=== PATIENT | female | born 1995 ===

== ENCOUNTER 2017-04-06 18:38 | Observation (INO) | payer BC ==
--- NOTE | 2017-04-06 19:01 | ED PDOC ---
HPI:STROKE - Time Time: 18:59 - Historian Historian: Patient - Chief Complaint Chief Complaint: Weakness, Numbness - Onset Date: 04/06/17 Time: 18:20 Onset: Hours (0.5) - Timing Timing: Improved - Location Location: None Locate right:: Face, Upper extremity - Radiation Radiation: None - Severity of pain Maximum severity:: Mild Pain Scale:: 0 Severity Current: Mild Pain Scale:: 0 - TPA Positive for Contraindication: Yes Reason tPA is not being Administered: sxs improving NIHSS Stroke Scale - How Severe is the Stroke Level of Consciousness: 0=Alert LOC to Questions: 0=Both comments correct LOC to commands: 0=Obeys both correctly Best Gaze: 0=Normal Visual: 0=No visual loss Facial: 0=Normal Motor Arm - Left: 0=No drift Motor Arm - Right: 0=No drift Motor Leg - Left: 0=No drift Motor Leg - Right: 0=No drift Limb Ataxia: 0=Absent Sensory: 1=Mild to moderate loss Best Language: 0=No aphasia Dysarthia: 0=Normal articulation Extinction & Inattention (Neglect): 0=Normal, no object Score: 1 rTPA Inclusion/Exclusion - Refusal of Treatment Patient Refused Treatment: No - Inclusion Criteria for Altepase Patient is 18 years or Older: Yes The Clinical Diagnosis of Ischemic Stroke That is Causing a Potentially Disabling Neurological Deficit: No Time of Onset is Well Established to be Less Than 270 Minute Before Treatment Would Begin: Yes Risk/Benefit Discussed With Patient/Family Member Present: No Past Medical History Vital Signs: Last Vital Signs Temp 98.6 F 04/06/17 18:45 Pulse 78 04/06/17 18:45 Resp 16 04/06/17 18:45 BP 119/66 04/06/17 18:45 Pulse Ox 99 04/06/17 18:45 - Medical History PMH: No Chronic Diseases - Family History Family History: States: Unknown Family Hx - Allergies Allergies/Adverse Reactions: Allergies Allergy/AdvReac Type Severity Reaction Status Date / Time No Known Allergies Allergy Verified 04/06/17 18:43 Review of Systems ROS Statement: Except As Marked, All Systems Reviewed And Found Negative Eyes: Positive for: Vision Change Neurological: Positive for: Numbness. Negative for: Weakness Physical Exam - Reviewed Nursing Documentation Reviewed: Yes Vital Signs Reviewed: Yes - Physical Exam Appears: Positive for: Non-toxic, No Acute Distress Head Exam: Positive for: ATRAUMATIC, NORMAL INSPECTION, NORMOCEPHALIC Skin: Positive for: Normal Color, Warm, DRY Eye Exam: Positive for: EOMI, Normal appearance, PERRL ENT: Positive for: Normal ENT Inspection Neck: Positive for: Normal, Painless ROM Cardiovascular/Chest: Positive for: Regular Rate, Rhythm Respiratory: Positive for: CNT, Normal Breath Sounds Gastrointestinal/Abdominal: Positive for: Normal Exam, Bowel Sounds, Soft Back: Positive for: Normal Inspection Extremity: Positive for: Normal ROM Neurologic/Psych: Positive for: Alert, Oriented, Motor/Sensory Deficits ( Decrease sensation right arm and right lower ext), Other (No visual field deficits) - ECG O2 Sat by Pulse Oximetry: 99 Disposition - Clinical Impression Clinical Impression: Weakness of one side of body - Patient ED Disposition Is Patient to be Admitted: Transfer of Care - Disposition Disposition: Transfer of Care Disposition Time: 19:08 Condition: FAIR Forms: iwoca (Armenian) Patient Signed Over To: Jacob Fonseca
--- NOTE | 2017-04-06 19:24 | CT ---
EXAM: CT Head Without Intravenous Contrast EXAM DATE/TIME: 04/06/2017 6:58 PM CLINICAL HISTORY: 21 years old, female; Signs and symptoms; Other: Code stroke TECHNIQUE: Axial computed tomography images of the head/brain without intravenous contrast. All CT scans at this facility use one or more dose reduction techniques, viz.: automated exposure control; ma/kV adjustment per patient size (including targeted exams where dose is matched to indication; i.e. head); or iterative reconstruction technique. Coronal and sagittal reformatted images were created and reviewed. COMPARISON: No relevant prior studies available. FINDINGS: LIMITATIONS: Streak/motion artifact, involving the images of the vertex/top of the brain. BRAIN: No significant acute abnormality identified. No acute hemorrhage seen within the brain. No acute extra-axial fluid collections visualized. No evidence of significant mass effect within the brain. No CT findings to suggest an acute, large territorial infarct, however, small or early acute infarcts may not be visible on CT. VENTRICLES: No evidence of significant hydrocephalus. BONES/JOINTS: No acute fractures or other acute bony abnormality noted. SOFT TISSUES: No acute abnormality of the visualized soft tissues is seen. SINUSES: Visualized paranasal sinuses appear clear. MASTOID AIR CELLS: Mastoid air cells appear clear. IMPRESSION: - No acute findings seen within the brain, allowing for motion artifact. - See above for remaining findings.
--- NOTE | 2017-04-06 19:28 | ED PDOC ---
- Laboratory Results Result Diagrams: 04/06/17 19:15 04/06/17 19:35 - ECG O2 Sat by Pulse Oximetry: 99 Medical Decision Making Medical Decision Makin:00 Patient signed over to me by Dr. Smallwood pending CT Scan, labs, and reevaluation. 19:[address] FINDINGS: LIMITATIONS: Streak/motion artifact, involving the images of the vertex/top of the brain. BRAIN: No significant acute abnormality identified. No acute hemorrhage seen within the brain. No acute extra-axial fluid collections visualized. No evidence of significant mass effect within the brain. No CT findings to suggest an acute, large territorial infarct, however, small or early acute infarcts may not be visible on CT. VENTRICLES: No evidence of significant hydrocephalus. BONES/JOINTS: No acute fractures or other acute bony abnormality noted. SOFT TISSUES: No acute abnormality of the visualized soft tissues is seen. SINUSES: Visualized paranasal sinuses appear clear. MASTOID AIR CELLS: Mastoid air cells appear clear. IMPRESSION: - No acute findings seen within the brain, allowing for motion artifact. - See above for remaining findings. 19:[address] Clemens, who reports that he feels that patient may have undiagnosed migraines, or possibly another neurologic issue. He asked that the patient be placed on Obs status for further workup including MRI. Plan explained to patient, who is in agreement. Patient additionally reports that her brother was recently diagnosed with MS, which was communicated to Dr. Clemens. Case referred to Dr. Marceol, Medicine household personal assistant. Scribe Attestation: Documented by Nilsa Linder, acting as a scribe for Jacob Fonseca MD. Provider Scribe Attestation: All medical record entries made by the Scribe were at my direction and personally dictated by me. I have reviewed the chart and agree that the record accurately reflects my personal performance of the history, physical exam, medical decision making, and the department course for this patient. I have also personally directed, reviewed, and agree with the discharge instructions and disposition. Disposition Discussed With Dr.: Jeromy Marcelo (Dr Clemens) Counseled Patient/Family Regarding: Studies Performed, Diagnosis - Clinical Impression Clinical Impression: TIA (transient ischemic attack), Numbness and tingling of right arm and leg - POA Present On Arrival: None - Disposition Disposition: Hospitalized as Observation Patient Disposition Time: 19:34 Condition: FAIR
[2017-04-06 20:01] LABS: BASO % 0.2 % (0.0-2.0); EOS # 0.1 K/uL (0.0-0.7); EOS % 1.9 % (0.0-4.0); HEMATOCRIT 35.9 % (34.0-47.0); LYMPH # 2.5 K/uL (1.0-4.3); LYMPH % 34.8 % (20.0-40.0); MEAN CELL VOLUME 88.4 fl (81.0-99.0); MEAN CORPUSCULAR HEMOGLOBIN 29.6 pg (27.0-31.0); MEAN CORPUSCULAR HGB CONC 33.5 g/dL (33.0-37.0); MEAN PLATELET VOLUME 9.1 fl (7.2-11.7); MONO # 0.5 K/uL (0.0-0.8); MONO % 7.4 % (0.0-10.0); NEUT # 3.9 K/uL (1.8-7.0); NEUT % 55.7 % (50.0-75.0); NRBC % 0.1 % (0.0-0.0); RED CELL DISTRIBUTION WIDTH 13.1 % (11.5-14.5); WHITE BLOOD COUNT 7.1 K/uL (4.8-10.8)
[2017-04-06 20:08] LABS: PARTIAL THROMBOPLASTIN TIME 27.6 Seconds (25.6-37.1)
[2017-04-06 20:14] LABS: ALB/GLOB RATIO 1.4 (1.0-2.1); ALKALINE PHOSPHATASE 83 U/L (38-126); ALT/SGPT 38 U/L (9-52); AST/SGOT 25 U/L (14-36); BILIRUBIN,TOTAL 0.4 mg/dl (0.2-1.3); BLOOD UREA NITROGEN 14 mg/dl (7-17); CARBON DIOXIDE 25 mmol/L (22-30); CHLORIDE 103 mmol/L (98-107); CHOLESTEROL 183 mg/dL (0-199); GFR AFRICAN-AMERICAN > 60; GLUCOSE,RANDOM 102 mg/dL (65-105); POTASSIUM 3.7 MMOL/L (3.6-5.0); SODIUM 139 mmol/l (132-148); TOTAL PROTEIN 7.9 G/DL (6.3-8.2)
[2017-04-07 06:47] LABS: HEMATOCRIT 36.1 % (34.0-47.0); MEAN CELL VOLUME 88.2 fl (81.0-99.0); MEAN CORPUSCULAR HEMOGLOBIN 29.7 pg (27.0-31.0); MEAN CORPUSCULAR HGB CONC 33.6 g/dL (33.0-37.0); RED CELL DISTRIBUTION WIDTH 13.1 % (11.5-14.5); WHITE BLOOD COUNT 5.9 K/uL (4.8-10.8)
--- NOTE | 2017-04-07 07:01 | CP.PCM.HP ---
History of Present Illness - History of Present Illness History of Present Illness: A 21 year old female was admitted on 04/06/17 for right side headache and numbness on right forehead. It started at the same day at 6:20 in the evening when she was at her friend's house. She started having pain at the back of right side head, it radiated down to neck , right arm and right leg. She also had blurry vision and black spots in her eyes. She was feeling nauseous at the same time, but she did not vomit. When the patient came to ER, code stroke was called. Normally she had been healthy and was not taking any regular medicines. There is no family history of stroke, MS, hypertension or diabetes. She does not smoke cigarettes and does not use any illicit drugs. She is during menstruation. Present on Admission - Present on Admission Any Indicators Present on Admission: No History of DVT/PE: No History of Uncontrolled Diabetes: No Urinary Catheter: No Decubitus Ulcer Present: No Review of Systems - EENT Eyes: Blurred Vision Nose/Mouth/Throat: absent: Nasal Congestion - Cardiovascular Cardiovascular: absent: Chest Pain, Dyspnea on Exertion - Respiratory Respiratory: absent: Cough - Gastrointestinal Gastrointestinal: Nausea - Genitourinary Genitourinary: absent: Hematuria Past Patient History - Past Medical History & Family History Past Medical History?: No - Past Social History Smoking Status: Never Smoked - CARDIAC Hx Cardiac Disorders: No - PULMONARY Hx Respiratory Disorders: No - NEUROLOGICAL Hx Neurological Disorder: No - HEENT Hx HEENT Problems: No - RENAL Hx Chronic Kidney Disease: No - ENDOCRINE/METABOLIC Hx Endocrine Disorders: No - HEMATOLOGICAL/ONCOLOGICAL Hx Blood Disorders: No - INTEGUMENTARY Hx Dermatological Problems: No - MUSCULOSKELETAL/RHEUMATOLOGICAL Hx Musculoskeletal Disorders: No Hx Falls: No - GASTROINTESTINAL Hx Gastrointestinal Disorders: No - GENITOURINARY/GYNECOLOGICAL Hx Genitourinary Disorders: No - PSYCHIATRIC Hx Psychophysiologic Disorder: No Hx Substance Use: No - SURGICAL HISTORY Hx Surgeries: No - ANESTHESIA Hx Anesthesia: No Meds Allergies/Adverse Reactions: Allergies Allergy/AdvReac Type Severity Reaction Status Date / Time No Known Allergies Allergy Verified 04/06/17 18:43 Physical Exam - Constitutional Appears: No Acute Distress - Respiratory Exam Respiratory Exam: Clear to Auscultation Bilateral, NORMAL BREATHING PATTERN - Cardiovascular Exam Cardiovascular Exam: REGULAR RHYTHM. absent: Systolic Murmur - GI/Abdominal Exam GI & Abdominal Exam: Normal Bowel Sounds, Soft. absent: Tenderness - Neurological Exam Neurological exam: Abnormal Gait - Skin Skin Exam: Warm Results - Vital Signs Recent Vital Signs: Last Vital Signs Temp 98.6 F 04/07/17 05:04 Pulse 64 04/07/17 05:04 Resp 18 04/07/17 05:04 BP 98/56 L 04/07/17 05:04 Pulse Ox 98 04/07/17 05:04 - Labs Result Diagrams: 04/06/17 19:15 04/06/17 19:35 Labs: Laboratory Results - last 24 hr 04/06/17 19:35 Sodium 139 Potassium 3.7 Chloride 103 Carbon Dioxide 25 Anion Gap 15 BUN 14 Creatinine 0.8 Est GFR ( Amer) > 60 Est GFR (Non-Af Amer) > 60 Random Glucose 102 Calcium 9.0 Total Bilirubin 0.4 AST 25 ALT 38 Alkaline Phosphatase 83 Troponin I < 0.0120 Total Protein 7.9 Albumin 4.6 Globulin 3.3 Albumin/Globulin Ratio 1.4 Triglycerides 122 Cholesterol 183 LDL Cholesterol Direct 113 HDL Cholesterol 40 Assessment & Plan - Assessment and Plan (Free Text) Assessment: A 21 year old female came with blurry vision and right side headache. R/O TIA R/O MS Plan: Neuro check Neurology consult brain MRI
[2017-04-07 08:15] LABS: ALB/GLOB RATIO 1.3 (1.0-2.1); ALKALINE PHOSPHATASE 78 U/L (38-126); ALT/SGPT 35 U/L (9-52); AST/SGOT 24 U/L (14-36); BILIRUBIN,TOTAL 0.4 mg/dl (0.2-1.3); BLOOD UREA NITROGEN 14 mg/dl (7-17); CALCIUM 8.7 mg/dL (8.4-10.2); CARBON DIOXIDE 24 mmol/L (22-30); CHLORIDE 105 mmol/L (98-107); CHOLESTEROL 169 mg/dL (0-199); GFR AFRICAN-AMERICAN > 60; GLUCOSE,RANDOM 92 mg/dL (65-105); POTASSIUM 3.8 MMOL/L (3.6-5.0); SODIUM 141 mmol/l (132-148); TOTAL PROTEIN 7.2 G/DL (6.3-8.2)
[2017-04-07 08:16] LABS: THYROID STIMULATING HORMONE 3.04 mIU/ML (0.46-4.68)
[2017-04-07 08:28] VITALS: O2SAT 99
--- NOTE | 2017-04-07 09:10 | CARD ---
APPROVED REPORT EKG Measurement Heart [id number] <Conclusion> Normal sinus rhythm Nornal ECG
--- NOTE | 2017-04-07 10:22 | RAD ---
HISTORY: cva COMPARISON: No prior. FINDINGS: LUNGS: No active pulmonary disease. PLEURA: No significant pleural effusion identified, no pneumothorax apparent. CARDIOVASCULAR: Normal. OSSEOUS STRUCTURES: On very mild dextroscoliosis centered in the lower thoracic region. VISUALIZED UPPER ABDOMEN: Normal. OTHER FINDINGS: None. IMPRESSION: No active disease.
[2017-04-07] MEDS ORDERED: Gadodiamide 287 MG/ML VIAL (15ML) IV ONE (10:57)
[2017-04-07] MEDS ORDERED: Magnesium Sulfate 2 gm/50 ml 2 GM/50 ML BAG IV ONE ×2 (12:00→15:00)
--- NOTE | 2017-04-07 12:09 | MRI ---
PROCEDURE: MRI BRAIN WITH AND WITHOUT CONTRAST HISTORY: numbness COMPARISON: None. TECHNIQUE: Multiplanar, multisequence MR images of the brain were obtained with and without intravenous contrast enhancement. FINDINGS: HEMORRHAGE: None DWI: No evidence of an acute or early subacute infarction. BRAIN PARENCHYMA: No mass,mass effect or edema. No atrophy or chronic microvascular ischemic changes. ENHANCEMENT: No abnormal intracranial enhancement. VENTRICLES: Unremarkable. No hydrocephalus. CRANIUM: Unremarkable. ORBITS: Grossly unremarkable. PARANASAL SINUSES/MASTOIDS: Clear VASCULAR SYSTEM: Skull base flow voids intact. OTHER FINDINGS: None . IMPRESSION: Unremarkable pre and post contrast enhanced MRI of the brain.
--- NOTE | 2017-04-07 12:20 | CP.PCM.CON ---
History of Present Illness - History of Present Illness History of Present Illness: Ms. Chacon is a 21-year-old woman with a past medical history of migraine headaches, who states that yesterday she developed a headache that was associated with visual changes, right sided numbness, nausea and strange sensation in her face. Today, she still has a lingering headache and feels that her neck on the right side is tense. She also says that she feels unstable when she walks. Otherwise, she is not nauseous now and has not vomited. She does not currently have photophobia, phonophobia or visual deficits. There were no acute events overnight. Review of Systems - Review of Systems All systems: reviewed and no additional remarkable complaints except Past Patient History - Past Medical History & Family History Past Medical History?: No - Past Social History Smoking Status: Never Smoked - CARDIAC Hx Cardiac Disorders: No - PULMONARY Hx Respiratory Disorders: No - NEUROLOGICAL Hx Neurological Disorder: No - HEENT Hx HEENT Problems: No - RENAL Hx Chronic Kidney Disease: No - ENDOCRINE/METABOLIC Hx Endocrine Disorders: No - HEMATOLOGICAL/ONCOLOGICAL Hx Blood Disorders: No - INTEGUMENTARY Hx Dermatological Problems: No - MUSCULOSKELETAL/RHEUMATOLOGICAL Hx Musculoskeletal Disorders: No Hx Falls: No - GASTROINTESTINAL Hx Gastrointestinal Disorders: No - GENITOURINARY/GYNECOLOGICAL Hx Genitourinary Disorders: No - PSYCHIATRIC Hx Psychophysiologic Disorder: No Hx Substance Use: No - SURGICAL HISTORY Hx Surgeries: No - ANESTHESIA Hx Anesthesia: No Meds Allergies/Adverse Reactions: Allergies Allergy/AdvReac Type Severity Reaction Status Date / Time No Known Allergies Allergy Verified 04/06/17 18:43 - Medications Medications: Current Medications Acetaminophen (Tylenol 325mg Tab) 650 mg PO Q6 PRN PRN Reason: Pain, moderate (4-7) Last Admin: 04/07/17 10:33 Dose: 650 mg Aspirin (Aspirin Chewable) 81 mg PO DAILY AURELIO Last Admin: 04/07/17 10:00 Dose: 81 mg Magnesium Sulfate (Magnesium Sulfate 2 Gm/50 Ml Water) 2 gm in 50 mls @ 50 mls/ hr IV ONCE ONE PRN Reason: 2 GM/HR Stop: 04/07/17 12:59 Physical Exam - Constitutional Appears: Well - Head Exam Head Exam: ATRAUMATIC, NORMAL INSPECTION, NORMOCEPHALIC - Eye Exam Eye Exam: EOMI, Normal appearance, PERRL - ENT Exam ENT Exam: Mucous Membranes Moist, Normal Exam - Neck Exam Neck exam: Positive for: Normal Inspection - Respiratory Exam Respiratory Exam: Clear to Auscultation Bilateral, NORMAL BREATHING PATTERN - Cardiovascular Exam Cardiovascular Exam: REGULAR RHYTHM, +S1, +S2 - GI/Abdominal Exam GI & Abdominal Exam: Normal Bowel Sounds, Soft. absent: Tenderness - Rectal Exam Rectal Exam: Deferred - Extremities Exam Extremities exam: Positive for: normal inspection - Back Exam Back exam: NORMAL INSPECTION - Neurological Exam Neurological exam: Alert, CN II-XII Intact, Normal Gait, Oriented x3, Reflexes Normal - Expanded Neurological Exam Expanded Patient oriented to: person, place, time Cranial nerves: EOM's Intact: Normal, Facial Sensation: Normal Sensory exam: Lower Extremity Light Touch: Normal, Lower Extremity Pin Prick: Normal, Upper Extremity Light Touch: Abnormal Right, Upper Extremity Pin Prick: Normal Neuro motor strength exam: Left Upper Extremity: 5, Right Upper Extremity: 5, Left Lower Extremity: 5, Right Lower Extremity: 5 DTR: Bicep Left: 3+, Bicep Right: 3+, Patellar Left: 3+, Patellar Right: 3+ - Psychiatric Exam Psychiatric exam: Normal Affect, Normal Mood - Skin Skin Exam: Dry, Intact, Normal Color, Warm Results - Vital Signs Recent Vital Signs: Last Vital Signs Temp 97.7 F 04/07/17 08:00 Pulse 66 04/07/17 08:00 Resp 18 04/07/17 08:00 BP 119/72 04/07/17 08:00 Pulse Ox 99 04/07/17 08:00 - Labs Result Diagrams: 04/07/17 05:35 04/07/17 05:35 Labs: Laboratory Results - last 24 hr 04/06/17 04/07/17 04/07/17 19:35 05:35 05:35 WBC 5.9 RBC 4.09 Hgb 12.1 Hct 36.1 MCV 88.2 MCH 29.7 MCHC 33.6 RDW 13.1 Plt Count 166 Sodium 139 141 Potassium 3.7 3.8 Chloride 103 105 Carbon Dioxide 25 24 Anion Gap 15 16 BUN 14 14 Creatinine 0.8 0.7 Est GFR ( Amer) > 60 > 60 Est GFR (Non-Af Amer) > 60 > 60 Random Glucose 102 92 Calcium 9.0 8.7 Total Bilirubin 0.4 0.4 AST 25 24 ALT 38 35 Alkaline Phosphatase 83 78 Troponin I < 0.0120 Total Protein 7.9 7.2 Albumin 4.6 4.0 Globulin 3.3 3.2 Albumin/Globulin Ratio 1.4 1.3 Triglycerides 122 113 Cholesterol 183 169 LDL Cholesterol Direct 113 109 HDL Cholesterol 40 35 TSH 3rd Generation 3.04 Assessment & Plan (1) Complicated migraine Assessment and Plan: With the history of headaches and neurologic deficits along with a normal MRI, the most likely diagnosis is complicated migraine. I would like to treat the patient with magnesium sulfate 2 grams IV once, Decadron 10 mg IV once and may continue magnesium oxide 400 mg BID. Start fluids with NS at 100 mL/hr and treat nausea with Reglan if needed. May discharge to follow up with outpatient neurology when she improves with regard to the headache. Status: Acute Priority: High
[2017-04-07] MEDS ORDERED: Dexamethasone 10 MG in Sodium Chloride 0.9% 50 ML IVPB ONE ×2 (12:21→15:00)
[2017-04-07] MEDS ORDERED: Sodium Chloride 0.9% 1,000 ML IV SCH (14:30)
[2017-04-07 15:37] VITALS: BP 104/68; PULSE 68; RESP 20; TEMP 98.6
== END 2017-04-07 18:45 | disposition home or self-care (01) ==
LOC: H.ER 18:38 → H.ERHOLD 19:34 → H.TEL 21:16
PROVIDERS: ADMIT Internal Medicine; ATTEND Internal Medicine
DX: R51 Headache (principal); H53.8 Other visual disturbances
CPT/HCPCS: 36415; 70450; 70553; 71010; 80053; 80061; 81025; 82948; 83036; 84443; 84484; 85025; 85027; 85610; 85730; 86850; 86900; 93005; 99285; A9579; G0378; J1100; J7040